=== PATIENT | female | born 1960 | race Caucasian/White ===

== ENCOUNTER 2023-08-21 09:39 | Outpatient (AMB) | payer OTHER, SELFPAY ==
--- NOTE | 2023-08-21 09:40 | A.OFFVIS_ITS ---
Intake Vital Signs 3 08/21/23 09:48 Height 5 ft 2 in Weight 136 lb 2 oz BMI 24.9 BP 139/85 Blood Pressure Location Lt brachial Position Sitting Pulse 78 Intake Visit Reasons: Hernia Intake Note: Patient is seen in office for evaluation and treatment of a hernia. 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 The lump was 1st identified approximately 1 year ago and has gradually increased in size since then. She reports working out in the gym frequently which seems to increase the size of the lump. She is able to reduce the lump with light pressure. She denies any nausea, vomiting, fever or chills. She does report constipation but she is uncertain if this is related to the lump. She denies any previous surgery in this location. [facility] Social History Alcohol intake: current Patient Tobacco Use Status: Never used Tobacco Review of Systems Const All systems reviewed & are unremarkable except as noted in HPI and below Physical Exam Vital Signs: Last Vital Signs Pulse 78 08/21/23 09:48 BP 139/85 08/21/23 09:48 BMI result Body Mass Index 24.9 Const General: cooperative and no acute distress Nutritional Appearance: well nourished Orientation/consciousness: patient oriented x3 Limitations: no limitations HEENT Head: Yes normocephalic and Yes atraumatic Ears: hearing grossly normal bilaterally Resp Effort & Inspection: normal respiratory effort, no audible wheezes, no cough and no respiratory distress Cardio Jugular venous distension: no JVD GI Other: Palpable lump located in the epigastrium noted best while standing. The lump increases in size with Valsalva maneuvers but reduces while in the supine position. No diastasis recti as noted with sit-up maneuvers. Finding is consistent with a ventral hernia. Defect measures approximately 2 cm. Inspection: Yes normal to inspection Abdomen image: 2 1. Site of hernia upper abdomen. Skin Other: Warm, dry, no rash Neuro General: patient oriented x3 Extrem General: Yes no clubbing, cyanosis or edema Assessment & Plan Assessment & Plan (1) Ventral hernia: Code(s): K43.9 - Ventral hernia without obstruction or gangrene Qualifiers: Obstruction and gangrene presence: without obstruction or gangrene Qualified Code(s): K43.9 - Ventral hernia without obstruction or gangrene Plan 63-year-old female patient presenting with a palpable mass in the upper abdomen which increases in size with lifting and straining and reduces with light pressure. On examination the patient does indeed have a ventral hernia in the upper abdomen which is reducible with light pressure. I recommended repair with mesh as a short-stay surgery. After discussion of the procedure, risks, and alternatives, she consents to the surgery. Coding Level of Care Code New Pt Level 4 (30278) Diagnoses Ventral hernia without obstruction or gangrene K43.9 Obstruction and gangrene presence: without obstruction or gangrene
[2023-08-21 09:48] VITALS: BP 139/85; PULSE 78; BMI 24.9
== END 2023-08-21 10:00 | disposition home or self-care (01) ==
PROVIDERS: PCP Internal Medicine; Referring Provider Internal Medicine; Visit Provider Surgery
DX: K43.9 Ventral hernia without obstruction or gangrene (principal)
CPT/HCPCS: 99204

== ENCOUNTER → 2023-08-21 09:39 | Outpatient (BNVA) | payer OTHER, SELFPAY | PROVIDERS: PCP Internal Medicine; Referring Provider Internal Medicine; Visit Provider Surgery ==